=== PATIENT | male | born 1955 | race Caucasian/White ===

== ENCOUNTER 2016-10-09 15:10 | Inpatient (IN) | payer OTHER ==
[~2016-10-09] VITALS: Ht 193 cm; Wt 170.2 kg
[2016-10-09 16:22] LABS: HEMATOCRIT 35.8 % (38.0-50.0); MCH 28.9 PG (29.0-34.0); MCHC 33.8 G/DL (30.0-36.0); MCV 85.4 FL (86-99); PLATELET COUNT 256 K/uL (156-360); RBC DIS.WIDTH-CV 13.5 % (11.8-14.6); RBC DIS.WIDTH-SD 41.1 % (39-53); RED BLOOD COUNT 4.19 M/uL (4.00-5.50)
[2016-10-09 16:32] LABS: CHLORIDE 98 mEq/L (99-109); POTASSIUM 4.1 mEq/L (3.7-5.4); SODIUM 132 mEq/L (136-147)
[2016-10-09 16:35] LABS: GLUCOSE 256 mg/dL (70-99)
[2016-10-09 16:36] LABS: ANION GAP 13 MEQ/L (2-14)
[2016-10-09 16:37] LABS: TOTAL BILIRUBIN 0.5 mg/dL (0.0-1.0)
[2016-10-09 16:38] LABS: ALKALINE PHOSPHATASE 168 IU/L (3-129); GFR ESTIMATE (CALCULATED) > 59 mL/min/
[2016-10-09 16:39] LABS: UREA NITROGEN (BUN) 25 mg/dL (9-23)
[2016-10-09] MEDS ORDERED: LISINOPRIL20 MG PO (20:21)
[2016-10-09] MEDS ORDERED: NOVOLIN N100 UNITS/ SC (20:21)
[2016-10-09] MEDS ORDERED: SILVADENE20 GM TP (20:21)
[2016-10-09] MEDS ORDERED: BACTRIM,SEPT1 TABLET PO (20:21)
[2016-10-09] MEDS ORDERED: MELOXICAM7.5 MG PO (20:21)
[2016-10-09] MEDS ORDERED: METFORMIN HCL1000 MG PO (20:22)
[2016-10-09] MEDS ORDERED: LITE COAT ASPI325 M1 PO (20:22)
[2016-10-09] MEDS ORDERED: PERCOCET 10/1 TABLET PO (20:22)
[2016-10-09] MEDS ORDERED: LYRICA200 MG PO (20:22)
[2016-10-09] MEDS ORDERED: SOMA350 MG PO (20:22)
[2016-10-09] MEDS ORDERED: ATENOLOL50 MG PO (20:22)
[2016-10-09] MEDS ORDERED: LOVASTATIN20 MG PO (20:23)
[2016-10-09 21:10] LABS: ADD MIUA? YES; BILIRUBIN NEGATIVE; BLOOD SMALL; COLOR DK YELLOW ((YELLOW)); GLUCOSE (STRIP) NEGATIVE; KETONES 40; LEUKOCYTES NEGATIVE; NITRITE NEGATIVE; PROTEIN (STRIP) 100
[2016-10-09 22:20] LABS: BACTERIA 1+; CASTS PRESENT /LPF; CRYSTALS PRESENT; EPITHELIAL CELLS RARE; FINE GRANULAR CASTS 0-5 /LPF; MUCUS RARE; UCUL ADDED? NO; WHITE BLOOD CELLS 0-5 /HPF (0-5)
[2016-10-09 22:21] LABS: AMORPHOUS PHOSPHATE CRYSTALS 2+
[2016-10-10] MEDS ORDERED: LIDODERM 5% P1 PATCH TD (05:16)
[2016-10-10] MEDS ORDERED: DURAGESIC75 MCG TD (05:16)
[2016-10-10 05:44] VITALS: BP 135/81
[2016-10-10 06:44] LABS: EOSINOPHIL (%) 0.8 % (0-5); EOSINOPHIL COUNT 0.1 K/uL (0-0.3); HEMATOCRIT 32.3 % (38.0-50.0); IMMATURE GRANULOCYTE (%) 0.7 % (0.0-0.7); IMMATURE GRANULOCYTE COUNT 0.1 K/uL; LYMPHOCYTE COUNT 1.3 K/uL (1.0-2.8); MCH 29.1 PG (29.0-34.0); MCHC 33.4 G/DL (30.0-36.0); MCV 87.1 FL (86-99); MEAN PLAT.VOLUME 10.4 uM^3 (9.0-12.4); MONOCYTE (%) 8.2 % (3-12); MONOCYTE COUNT 1.5 K/uL (0-0.8); NEUTROPHIL (%) 82.7 % (45-76); NEUTROPHIL COUNT 14.5 K/uL (1.8-6.4); PLATELET COUNT 240 K/uL (156-360); RBC DIS.WIDTH-CV 13.9 % (11.8-14.6); RBC DIS.WIDTH-SD 44.5 % (39-53); RED BLOOD COUNT 3.71 M/uL (4.00-5.50); WHITE BLOOD COUNT 17.6 K/uL (4.1-10.2)
[2016-10-10 07:21] LABS: ANION GAP 11 MEQ/L (2-14); CHLORIDE 97 MEQ/L (99-109); GFR ESTIMATE (CALCULATED) > 59 mL/min/; GLUCOSE 318 mg/dL (70-99); POTASSIUM 4.1 MEQ/L (3.7-5.4); SAMPLE HEMOLYSIS CHECK 0; SAMPLE ICTERIC CHECK 0; SAMPLE LIPEMIA CHECK 0; SODIUM 129 MEQ/L (136-147); UREA NITROGEN (BUN) 20 mg/dL (9-23)
[2016-10-10 09:01] LABS: Estimated Average Glucose 220 mg/dL (70-123); HEMOGLOBIN A1c (GLYCOHEMOGLOB) 9.3 % HGB (Below 5.7)
[2016-10-10 11:04] VITALS: BP 130/75
[2016-10-10 15:23] VITALS: BP 148/79
[2016-10-10 17:47] LABS: POINT-OF-CARE USER ID 515036437
[2016-10-10 19:10] VITALS: BP 125/69
[2016-10-11] VITALS: BP 101/53
[2016-10-11 04:05] VITALS: BP 147/69
[2016-10-11 06:16] LABS: EOSINOPHIL (%) 0.1 % (0-5); HEMATOCRIT 29.7 % (38.0-50.0); IMMATURE GRANULOCYTE (%) 0.6 % (0.0-0.7); IMMATURE GRANULOCYTE COUNT 0.1 K/uL; LYMPHOCYTE COUNT 1.1 K/uL (1.0-2.8); MCH 28.5 PG (29.0-34.0); MCHC 32.7 G/DL (30.0-36.0); MCV 87.4 FL (86-99); MEAN PLAT.VOLUME 9.9 uM^3 (9.0-12.4); MONOCYTE (%) 6.3 % (3-12); MONOCYTE COUNT 0.9 K/uL (0-0.8); NEUTROPHIL (%) 84.9 % (45-76); NEUTROPHIL COUNT 12.2 K/uL (1.8-6.4); PLATELET COUNT 241 K/uL (156-360); RBC DIS.WIDTH-CV 14.1 % (11.8-14.6); WHITE BLOOD COUNT 14.3 K/uL (4.1-10.2)
[2016-10-11 07:47] VITALS: BP 131/72
[2016-10-11 08:19] LABS: ANION GAP 10 MEQ/L (2-14); CHLORIDE 102 MEQ/L (99-109); GFR ESTIMATE (CALCULATED) > 59 mL/min/; GLUCOSE 300 mg/dL (70-99); SAMPLE HEMOLYSIS CHECK 0; SAMPLE ICTERIC CHECK 0; SAMPLE LIPEMIA CHECK 0; SODIUM 133 MEQ/L (136-147); UREA NITROGEN (BUN) 20 mg/dL (9-23)
[2016-10-11 11:27] VITALS: BP 126/70
[2016-10-11 15:18] VITALS: BP 104/66
[2016-10-11 20:00] VITALS: BP 122/66
[2016-10-12] VITALS: BP 129/69
[2016-10-12 04:30] VITALS: BP 130/73
[2016-10-12 08:08] VITALS: BP 121/84
[2016-10-12 08:11] LABS: HEMATOCRIT 32.4 % (38.0-50.0); MCH 29.3 PG (29.0-34.0); MCHC 32.7 G/DL (30.0-36.0); MCV 89.5 FL (86-99); MEAN PLAT.VOLUME 10.5 uM^3 (9.0-12.4); PLATELET COUNT 298 K/uL (156-360); RBC DIS.WIDTH-CV 14.3 % (11.8-14.6); RBC DIS.WIDTH-SD 46.9 % (39-53); RED BLOOD COUNT 3.62 M/uL (4.00-5.50); WHITE BLOOD COUNT 10.4 K/uL (4.1-10.2)
[2016-10-12 08:21] LABS: ANION GAP 11 MEQ/L (2-14); CHLORIDE 104 MEQ/L (99-109); GFR ESTIMATE (CALCULATED) > 59 mL/min/; GLUCOSE 217 mg/dL (70-99); POTASSIUM 4.7 MEQ/L (3.7-5.4); SAMPLE HEMOLYSIS CHECK 0; SAMPLE ICTERIC CHECK 0; SAMPLE LIPEMIA CHECK 0; SODIUM 136 MEQ/L (136-147); UREA NITROGEN (BUN) 21 mg/dL (9-23)
[2016-10-12 08:37] LABS: BASOPHIL COUNT 0.1 K/uL (0-0.1); EOSINOPHIL (%) 4.3 % (0-5); EOSINOPHIL COUNT 0.5 K/uL (0-0.3); HEMATOLOGY COMMENT 1 SMEAR COMPATIBLE; IMMATURE GRANULOCYTE (%) 3.5 % (0.0-0.7); IMMATURE GRANULOCYTE COUNT 0.4 K/uL; LYMPHOCYTE COUNT 2.3 K/uL (1.0-2.8); MONOCYTE (%) 7.7 % (3-12); MONOCYTE COUNT 0.8 K/uL (0-0.8); NEUTROPHIL (%) 62.1 % (45-76); NEUTROPHIL COUNT 6.5 K/uL (1.8-6.4); USER ID CL
[2016-10-12 11:05] LABS: POINT-OF-CARE METER ID UU14174225
[2016-10-12 11:10] VITALS: BP 141/73
[2016-10-12 15:19] VITALS: BP 164/79
[2016-10-12 16:01] LABS: POINT-OF-CARE METER ID UU14174225
[2016-10-12 19:50] VITALS: BP 140/79
[2016-10-13 00:29] VITALS: BP 133/64; BP 139/71
[2016-10-13 03:57] VITALS: BP 141/76
[2016-10-13 07:09] LABS: HEMATOCRIT 35.2 % (38.0-50.0); MCH 28.9 PG (29.0-34.0); MCHC 32.1 G/DL (30.0-36.0); MEAN PLAT.VOLUME 9.8 uM^3 (9.0-12.4); PLATELET COUNT 365 K/uL (156-360); RBC DIS.WIDTH-CV 14.5 % (11.8-14.6); RBC DIS.WIDTH-SD 47.6 % (39-53); RED BLOOD COUNT 3.91 M/uL (4.00-5.50); WHITE BLOOD COUNT 8.9 K/uL (4.1-10.2)
[2016-10-13 07:34] LABS: ALKALINE PHOSPHATASE 90 IU/L (3-129); ANION GAP 9 MEQ/L (2-14); CHLORIDE 106 MEQ/L (99-109); GFR ESTIMATE (CALCULATED) > 59 mL/min/; GLUCOSE 199 mg/dL (70-99); MAGNESIUM 2.3 mg/dl (1.3-2.7); POTASSIUM 4.8 MEQ/L (3.7-5.4); SAMPLE HEMOLYSIS CHECK 0; SAMPLE ICTERIC CHECK 0; SAMPLE LIPEMIA CHECK 0; SODIUM 142 MEQ/L (136-147); TOTAL BILIRUBIN 0.3 MG/DL (0.0-1.0); UREA NITROGEN (BUN) 15 mg/dL (9-23)
[2016-10-13 07:54] VITALS: BP 177/79
[2016-10-13 08:01] LABS: DELETE MACHINE DIFF? YES
[2016-10-13 08:02] LABS: ABS NEUTROPHIL COUNT 5.98; ANISOCYTOSIS 1+; EOSINOPHIL ABS CT 0.54; HYPOCHROMASIA 1+; MICROCYTOSIS OCC; PLAT.SUFFICIENCY ADEQUATE; SPHEROCYTES OCC; USER ID TLW
[2016-10-13 16:06] VITALS: BP 165/86
[2016-10-14 00:12] VITALS: BP 157/83
[2016-10-14 08:10] VITALS: BP 178/85
[2016-10-14 09:35] LABS: HEMATOCRIT 33.4 % (38.0-50.0); MCH 29.2 PG (29.0-34.0); MCHC 32.3 G/DL (30.0-36.0); MCV 90.3 FL (86-99); MEAN PLAT.VOLUME 9.5 uM^3 (9.0-12.4); PLATELET COUNT 360 K/uL (156-360); RBC DIS.WIDTH-CV 14.4 % (11.8-14.6); RBC DIS.WIDTH-SD 47.1 % (39-53); WHITE BLOOD COUNT 10.2 K/uL (4.1-10.2)
[2016-10-14 10:03] LABS: ANION GAP 9 MEQ/L (2-14); CHLORIDE 102 MEQ/L (99-109); GFR ESTIMATE (CALCULATED) > 59 mL/min/; GLUCOSE 187 mg/dL (70-99); POTASSIUM 4.7 MEQ/L (3.7-5.4); SAMPLE HEMOLYSIS CHECK 0; SAMPLE ICTERIC CHECK 0; SAMPLE LIPEMIA CHECK 0; SODIUM 140 MEQ/L (136-147); UREA NITROGEN (BUN) 10 mg/dL (9-23)
[2016-10-14 15:06] LABS: Estimated Average Glucose 220 mg/dL (70-123); HEMOGLOBIN A1c (GLYCOHEMOGLOB) 9.3 % HGB (Below 5.7)
[2016-10-14 16:08] VITALS: BP 166/72
[2016-10-15 00:25] VITALS: BP 184/81
[2016-10-15 06:59] LABS: HEMATOCRIT 34.9 % (38.0-50.0); MCH 29.1 PG (29.0-34.0); MCHC 32.4 G/DL (30.0-36.0); MCV 89.9 FL (86-99); MEAN PLAT.VOLUME 9.4 uM^3 (9.0-12.4); PLATELET COUNT 315 K/uL (156-360); RBC DIS.WIDTH-CV 14.4 % (11.8-14.6); RED BLOOD COUNT 3.88 M/uL (4.00-5.50); WHITE BLOOD COUNT 8.8 K/uL (4.1-10.2)
[2016-10-15 07:30] VITALS: BP 149/71
[2016-10-15 07:34] LABS: ANION GAP 8 MEQ/L (2-14); CHLORIDE 100 MEQ/L (99-109); GFR ESTIMATE (CALCULATED) > 59 mL/min/; GLUCOSE 194 mg/dL (70-99); POTASSIUM 4.7 MEQ/L (3.7-5.4); SAMPLE HEMOLYSIS CHECK 0; SAMPLE ICTERIC CHECK 0; SAMPLE LIPEMIA CHECK 0; SODIUM 139 MEQ/L (136-147); UREA NITROGEN (BUN) 11 mg/dL (9-23)
[2016-10-15 07:52] LABS: POINT-OF-CARE METER ID UU14174225
[2016-10-15 08:28] VITALS: BP 149/71
[2016-10-15 11:09] LABS: POINT-OF-CARE METER ID UU14174225
[2016-10-15 16:12] VITALS: BP 168/86
[2016-10-15 16:43] LABS: POINT-OF-CARE METER ID UU14174225
[2016-10-15 22:20] LABS: POINT-OF-CARE METER ID UU14174225
[2016-10-16] VITALS: BP 161/79
[2016-10-16 08:32] VITALS: BP 150/90
[2016-10-16 15:12] VITALS: BP 132/66
[2016-10-17] VITALS: BP 137/63
[2016-10-17 07:38] VITALS: BP 132/76
[2016-10-17 08:36] LABS: POINT-OF-CARE METER ID UU14174225
[2016-10-17 16:30] VITALS: BP 147/68
[2016-10-18 00:11] VITALS: BP 132/76
[2016-10-18 07:01] VITALS: BP 130/60
[2016-10-18 07:58] LABS: POINT-OF-CARE METER ID UU14174225; POINT-OF-CARE USER ID 611181312
[2016-10-18 11:50] LABS: POINT-OF-CARE METER ID UU14174225; POINT-OF-CARE USER ID 611181312
[2016-10-18 15:58] LABS: POINT-OF-CARE METER ID UU14174225
[2016-10-18 15:59] VITALS: BP 164/76
[2016-10-18 23:58] VITALS: BP 134/71
[2016-10-19 07:39] VITALS: BP 137/76
[2016-10-19 09:10] LABS: POINT-OF-CARE METER ID UU14174225
[2016-10-19 15:24] VITALS: BP 154/66
[2016-10-20 00:13] VITALS: BP 160/71
[2016-10-20 07:52] VITALS: BP 153/83
[2016-10-20 08:26] LABS: HEMATOCRIT 34.9 % (38.0-50.0); MCH 29.4 PG (29.0-34.0); MCHC 32.7 G/DL (30.0-36.0); MCV 89.9 FL (86-99); MEAN PLAT.VOLUME 9.5 uM^3 (9.0-12.4); PLATELET COUNT 303 K/uL (156-360); RBC DIS.WIDTH-CV 14.4 % (11.8-14.6); RBC DIS.WIDTH-SD 46.7 % (39-53); RED BLOOD COUNT 3.88 M/uL (4.00-5.50); WHITE BLOOD COUNT 7.2 K/uL (4.1-10.2)
[2016-10-20 08:52] LABS: ANION GAP 7 MEQ/L (2-14); CHLORIDE 102 MEQ/L (99-109); POTASSIUM 4.4 MEQ/L (3.7-5.4); SAMPLE HEMOLYSIS CHECK 0; SAMPLE ICTERIC CHECK 0; SAMPLE LIPEMIA CHECK 0; SODIUM 138 MEQ/L (136-147)
[2016-10-20 09:00] LABS: GFR ESTIMATE (CALCULATED) > 59 mL/min/; GLUCOSE 122 mg/dL (70-99); UREA NITROGEN (BUN) 18 mg/dL (9-23)
[2016-10-20 15:05] VITALS: BP 130/71
[2016-10-20 23:40] VITALS: BP 130/60
[2016-10-21 07:57] VITALS: BP 132/72
[2016-10-21 15:48] VITALS: BP 139/67
[2016-10-21 16:22] LABS: POINT-OF-CARE METER ID UU14174225
[2016-10-21 23:59] VITALS: BP 170/72
[2016-10-22 07:55] VITALS: BP 129/74
[2016-10-22] MEDS ORDERED: HEPARIN SO5000 UNITS SC (13:45)
[2016-10-22] MEDS ORDERED: AMITRIPTYLINE H10 MG PO (13:50)
[2016-10-22] MEDS ORDERED: NOVOLIN N100 UNITS/ SC (13:51)
[2016-10-22] MEDS ORDERED: NYSTATIN15 GM TP (13:51)
[2016-10-22] MEDS ORDERED: THERAGRAN1 TABLET PO (13:51)
[2016-10-22] MEDS ORDERED: NOVOLOG PE100 UNITS/ SC (13:51)
[2016-10-22] MEDS ORDERED: OXYCODONE-APAP1 EACH PO (13:52)
[2016-10-22] MEDS ORDERED: KEFLEX500 MG PO (14:25)
[2016-10-22] MEDS ORDERED: MELOXICAM7.5 MG PO (15:51)
[2016-10-22 15:59] VITALS: BP 145/79
== END 2016-10-22 18:15 | DRG 256 ==
LOC: RME 15:10 → EME 15:10 → EDOF 20:10 → 5SOUTH 20:49 → EDOF 20:49 → 5SOUTH 10-10 05:15
PROVIDERS: Hospitalist; Internal Medicine; Physician Assistant; Surgery
DX: E11.52 Type 2 diabetes mellitus with diabetic peripheral angiopathy with gangrene (principal); E11.69 Type 2 diabetes mellitus with other specified complication; L03.115 Cellulitis of right lower limb; B95.61 Methicillin susceptible Staphylococcus aureus infection as the cause of diseases classified elsewhere; E66.01 Morbid (severe) obesity due to excess calories; Z68.42 Body mass index [BMI] 45.0-49.9, adult; L02.611 Cutaneous abscess of right foot; E87.1 Hypo-osmolality and hyponatremia; J02.8 Acute pharyngitis due to other specified organisms; I89.0 Lymphedema, not elsewhere classified; I10 Essential (primary) hypertension; E78.5 Hyperlipidemia, unspecified; E78.00 Pure hypercholesterolemia, unspecified; E11.65 Type 2 diabetes mellitus with hyperglycemia; E11.42 Type 2 diabetes mellitus with diabetic polyneuropathy; G89.4 Chronic pain syndrome; M54.5 Low back pain; M54.2 Cervicalgia; Z86.718 Personal history of other venous thrombosis and embolism; Z79.891 Long term (current) use of opiate analgesic; Z79.4 Long term (current) use of insulin
CPT/HCPCS: 73630; 80048; 80053; 80202; 81003; 82009; 82565; 82948; 83036; 83605; 83735; 84100; 85025; 85027; 87040; 87070; 87075; 87076; 87077; 87147; 87186; 87205; 88305; 88311; 93005; 93926; 93971; 97530 GP; 99281; 99285; J0330; J0690; J1100; J1170; J1644; J1815; J2405; J2543; J2710; J3010; J3370; J7030; J7040; J7050

== ENCOUNTER 2016-12-08 11:05 | Inpatient (IN) | payer OTHER ==
[~2016-12-08] VITALS: Ht 193 cm; Wt 180.3 kg
[~2016-12-08 11:05] MED LIST: AMITRIPTYLINE H10 MG PO; ATENOLOL50 MG PO; BACTRIM,SEPT1 TABLET PO; DURAGESIC75 MCG TD; HEPARIN SO5000 UNITS SC; KEFLEX500 MG PO; LIDODERM 5% P1 PATCH TD; LISINOPRIL20 MG PO; LITE COAT ASPI325 M1 PO; LOVASTATIN20 MG PO; LYRICA200 MG PO; MELOXICAM7.5 MG PO; METFORMIN HCL1000 MG PO; NOVOLIN N100 UNITS/ SC; NOVOLOG PE100 UNITS/ SC; NYSTATIN15 GM TP; OXYCODONE-APAP1 EACH PO; PERCOCET 10/1 TABLET PO; SILVADENE20 GM TP; SOMA350 MG PO; THERAGRAN1 TABLET PO
[2016-12-08 12:05] LABS: EOSINOPHIL (%) 0.5 % (0-5); EOSINOPHIL COUNT 0.1 K/uL (0-0.3); HEMATOCRIT 33.9 % (38.0-50.0); IMMATURE GRANULOCYTE (%) 0.3 % (0.0-0.7); IMMATURE GRANULOCYTE COUNT 0.5 K/uL; MCHC 33.3 G/DL (30.0-36.0); MCV 86.9 FL (86-99); MEAN PLAT.VOLUME 9.7 uM^3 (9.0-12.4); MONOCYTE (%) 6.5 % (3-12); MONOCYTE COUNT 1.1 K/uL (0-0.8); NEUTROPHIL (%) 86.9 % (45-76); NEUTROPHIL COUNT 15.2 K/uL (1.8-6.4); PLATELET COUNT 251 K/uL (156-360); RBC DIS.WIDTH-CV 13.3 % (11.8-14.6); RBC DIS.WIDTH-SD 41.2 % (39-53); WHITE BLOOD COUNT 17.5 K/uL (4.1-10.2)
[2016-12-08 12:30] LABS: CHLORIDE 102 mEq/L (99-109); POTASSIUM 5.4 mEq/L (3.7-5.4); SODIUM 136 mEq/L (136-147)
[2016-12-08 12:31] LABS: GLUCOSE 220 mg/dL (70-99)
[2016-12-08 12:33] LABS: ANION GAP 8 MEQ/L (2-14)
[2016-12-08 12:35] LABS: GFR ESTIMATE (CALCULATED) 55 mL/min/
[2016-12-08 12:36] LABS: UREA NITROGEN (BUN) 42 mg/dL (9-23)
[2016-12-08] MEDS ORDERED: PERCOCET 10/1 TABLET PO (13:03)
[2016-12-08] MEDS ORDERED: HEMMOREX-HC25 MG PR (14:11)
[2016-12-08] MEDS ORDERED: LANTUS 10100 UNITS/ SC (14:13)
[2016-12-08] MEDS ORDERED: LASIX40 MG PO (14:14)
[2016-12-08] MEDS ORDERED: THERAGRAN1 TABLET PO (14:16)
[2016-12-08] MEDS ORDERED: PROTONIX40 MG PO (14:20)
[2016-12-08] MEDS ORDERED: VITAMIN C500 M1 PO (14:21)
[2016-12-08] MEDS ORDERED: NOVOLOG PE100 UNITS/ SC (14:38)
[2016-12-08] MEDS ORDERED: GLUCO BURST37.5 GM PO (14:42)
[2016-12-08] MEDS ORDERED: OXAYDO5 MG PO (14:44)
[2016-12-08] MEDS ORDERED: B-121000 MC2 PO (14:48)
[2016-12-08] MEDS ORDERED: AMITRIPTYLINE H25 MG PO (16:33)
[2016-12-08] MEDS ORDERED: HEPARIN SO5000 UNITS SC (16:36)
[2016-12-08 19:09] VITALS: BP 144/65
[2016-12-08 22:49] VITALS: BP 136/62
[2016-12-09 07:08] LABS: ANION GAP 7 MEQ/L (2-14); CHLORIDE 101 MEQ/L (99-109); GFR ESTIMATE (CALCULATED) > 59 mL/min/; GLUCOSE 155 mg/dL (70-99); SAMPLE HEMOLYSIS CHECK 0; SAMPLE ICTERIC CHECK 0; SAMPLE LIPEMIA CHECK 0; SODIUM 137 MEQ/L (136-147); UREA NITROGEN (BUN) 33 mg/dL (9-23)
[2016-12-09 07:14] LABS: EOSINOPHIL (%) 0.5 % (0-5); HEMATOCRIT 32.1 % (38.0-50.0); IMMATURE GRANULOCYTE (%) 0.3 % (0.0-0.7); MCH 27.4 PG (29.0-34.0); MCHC 30.5 G/DL (30.0-36.0); MCV 89.7 FL (86-99); MEAN PLAT.VOLUME 9.6 uM^3 (9.0-12.4); MONOCYTE (%) 10.3 % (3-12); MONOCYTE COUNT 0.9 K/uL (0-0.8); NEUTROPHIL (%) 77.1 % (45-76); NEUTROPHIL COUNT 6.7 K/uL (1.8-6.4); PLATELET COUNT 199 K/uL (156-360); RBC DIS.WIDTH-CV 13.9 % (11.8-14.6); RBC DIS.WIDTH-SD 45.6 % (39-53); RED BLOOD COUNT 3.58 M/uL (4.00-5.50)
[2016-12-09 07:15] VITALS: BP 115/56
[2016-12-09 07:20] LABS: WHITE BLOOD COUNT 8.7 K/uL (4.1-10.2)
[2016-12-09 07:29] LABS: POTASSIUM 4.1 MEQ/L (3.7-5.4)
[2016-12-09 11:40] VITALS: BP 111/57
[2016-12-09 11:42] LABS: POINT-OF-CARE METER ID UU13113725
[2016-12-09 15:50] VITALS: BP 112/55
[2016-12-09 23:34] VITALS: BP 147/63
[2016-12-10 07:58] VITALS: BP 102/56
[2016-12-10 09:03] LABS: GFR ESTIMATE (CALCULATED) > 59 mL/min/; UREA NITROGEN (BUN) 24 mg/dL (9-23)
[2016-12-10 09:14] LABS: VANCOMYCIN, TROUGH 19.7 MCG/ML (10-20)
[2016-12-10 15:21] VITALS: BP 115/55
[2016-12-10 16:24] LABS: POINT-OF-CARE METER ID UU13113725
[2016-12-11] VITALS: BP 111/55
[2016-12-11 06:54] VITALS: BP 134/67
[2016-12-11] MEDS ORDERED: UNASYN3 GM IM (11:31)
[2016-12-11] MEDS ORDERED: FENTANYL1 EAC2 TD (11:31)
[2016-12-11] MEDS ORDERED: OXYCODONE HCL5 MG PO (11:31)
[2016-12-11] MEDS ORDERED: DAKINS SOLUTIO473 ML TP (11:31)
[2016-12-11] MEDS ORDERED: OXYCODONE-APAP1 EACH PO (11:31)
[2016-12-11 15:21] VITALS: BP 117/54
[2016-12-11 23:25] VITALS: BP 132/69
[2016-12-12 07:12] VITALS: BP 147/63
[2016-12-12 15:15] VITALS: BP 131/64
[2016-12-12 19:30] VITALS: BP 132/78
[2016-12-12 20:17] LABS: POINT-OF-CARE USER ID AHSUCEG
[2016-12-12 23:42] VITALS: BP 121/62
[2016-12-12 23:43] VITALS: BP 121/62
[2016-12-13 07:53] VITALS: BP 128/69
[2016-12-13] MEDS ORDERED: OXYCODONE HCL5 MG PO (10:41)
[2016-12-13] MEDS ORDERED: UNASYN3 GM IV (11:21)
== END 2016-12-13 12:30 | DRG 638 ==
LOC: EME 11:05 → 5EAST 14:22 → EDOF 14:22 → 5EAST 18:06
PROVIDERS: Emergency Medicine; Hospitalist; Internal Medicine; Internal Medicine Infectious Disease
PROC: 02HV33Z Insertion of Infusion Device into Superior Vena Cava, Percutaneous Approach (ICD-10-PCS; principal; 2016-12-12)
DX: E11.69 Type 2 diabetes mellitus with other specified complication (principal); L03.115 Cellulitis of right lower limb; N17.9 Acute kidney failure, unspecified; M86.8X7 Other osteomyelitis, ankle and foot; E11.42 Type 2 diabetes mellitus with diabetic polyneuropathy; E11.65 Type 2 diabetes mellitus with hyperglycemia; Z68.42 Body mass index [BMI] 45.0-49.9, adult; E66.01 Morbid (severe) obesity due to excess calories; I10 Essential (primary) hypertension; Z79.84 Long term (current) use of oral hypoglycemic drugs; Z79.4 Long term (current) use of insulin; B95.4 Other streptococcus as the cause of diseases classified elsewhere; Z86.718 Personal history of other venous thrombosis and embolism; G89.29 Other chronic pain
CPT/HCPCS: 73720; 76937; 80048; 80202; 82565; 82948; 83605; 84520; 85025; 85651; 86140; 87040; 87070; 87075; 87077; 87186; 87205; 97530 GO; 99281; 99285; C1769; J0295; J0692; J1650; J1815; J2543; J3370; J7030; J7040; J7050

== ENCOUNTER 2017-05-12 13:04 | Inpatient (IN) | payer OTHER ==
[~2017-05-12] VITALS: Ht 193 cm; Wt 176.4 kg
[~2017-05-12 13:04] MED LIST changes: +AMITRIPTYLINE H25 MG PO; +B-121000 MC2 PO; +DAKINS SOLUTIO473 ML TP; +FENTANYL1 EAC2 TD; +GLUCO BURST37.5 GM PO; +HEMMOREX-HC25 MG PR; +LANTUS 10100 UNITS/ SC; +LASIX40 MG PO; +OXAYDO5 MG PO; +OXYCODONE HCL5 MG PO; +PROTONIX40 MG PO; +UNASYN3 GM IM; +UNASYN3 GM IV; +VITAMIN C500 M1 PO
[2017-05-12 13:32] LABS: HEMATOCRIT 34.2 % (38.0-50.0); MCH 28.1 PG (29.0-34.0); MCHC 32.7 G/DL (30.0-36.0); MCV 85.9 FL (86-99); MEAN PLAT.VOLUME 8.8 uM^3 (9.0-12.4); PLATELET COUNT 187 K/uL (156-360); RBC DIS.WIDTH-CV 14.3 % (11.8-14.6); RBC DIS.WIDTH-SD 44.4 % (39-53); RED BLOOD COUNT 3.98 M/uL (4.00-5.50); WHITE BLOOD COUNT 14.9 K/uL (4.1-10.2)
[2017-05-12 13:40] LABS: CHLORIDE 104 mEq/L (99-109); SODIUM 137 mEq/L (136-147)
[2017-05-12 13:41] LABS: GLUCOSE 192 mg/dL (70-99)
[2017-05-12 13:43] LABS: ANION GAP 9 MEQ/L (2-14)
[2017-05-12 13:45] LABS: GFR ESTIMATE (CALCULATED) 44 mL/min/
[2017-05-12 13:46] LABS: UREA NITROGEN (BUN) 26 mg/dL (9-23)
[2017-05-12 15:38] LABS: BASE EXCESS -0.8 mEq/L (-3 to +3); BICARBONATE 23.2 mEq/L (22-26); CARBOXY HGB 1.5 % (0-5); COMMENTS - BLOOD GASES A+C+; DEVICE NC; METHEMOGLOBIN 1.4 % (0-1.5); O2 FLOW 2 L/MIN; PCO2 35 mm Hg (35-45); PO2 104 mm Hg (80-100); SITE RR; TOTAL RESP RATE 15 resp/min; pH 7.43 (7.35-7.45)
[2017-05-12 16:49] LABS: ADD MIUA? NO; BILIRUBIN NEGATIVE; BLOOD NEGATIVE; COLOR YELLOW ((YELLOW)); GLUCOSE (STRIP) NEGATIVE; KETONES NEGATIVE; LEUKOCYTES NEGATIVE; NITRITE NEGATIVE; PROTEIN (STRIP) NEGATIVE; SPECIFIC GRAVITY 1.019 (1.000-1.030); UCUL ADDED? NO; UROBILINOGEN 0.2 MG/DL (0.2-1.0)
[2017-05-12] MEDS ORDERED: ROXICODONE5 MG PO (17:19)
[2017-05-12] MEDS ORDERED: OXYCONTIN15 MG PO (17:20)
[2017-05-12] MEDS ORDERED: PERCOCET 10/1 TABLET PO (17:22)
[2017-05-12] MEDS ORDERED: CIALIS20 MG PO (17:26)
[2017-05-12] MEDS ORDERED: MELOXICAM7.5 MG PO (17:27)
[2017-05-12] MEDS ORDERED: DOXYCYCLINE HYC50 MG PO (17:27)
[2017-05-12 17:57] LABS: APPEARANCE CLEAR/COLORLESS
[2017-05-12 18:03] LABS: RED CELL AREA COUNTED 18; RED CELL COUNT 4 /MM^3 (0-1); RED CELL DILUTION 1; WBC AREA COUNTED 18; WBC DILUTION 1; WHITE CELL COUNT 1 /MM^3 (0-5); WHITE CELL RAW COUNT 1
[2017-05-12 18:04] LABS: CSF EOSINOPHILS 0 % (0-25); MONONUCLEAR WBC'S 0 % (50-90); POLYNUCLEAR WBC'S 0 % (0-3)
[2017-05-12 20:13] VITALS: BP 115/50
[2017-05-12 20:23] LABS: POINT-OF-CARE METER ID UU14174225
[2017-05-12 22:30] VITALS: BP 134/66
[2017-05-13 03:48] VITALS: BP 136/63
[2017-05-13 05:32] LABS: HEMATOCRIT 28.9 % (38.0-50.0); MCH 28.7 PG (29.0-34.0); MCHC 33.2 G/DL (30.0-36.0); MCV 86.5 FL (86-99); PLATELET COUNT 160 K/uL (156-360); RBC DIS.WIDTH-CV 14.8 % (11.8-14.6); RBC DIS.WIDTH-SD 46.9 % (39-53); RED BLOOD COUNT 3.34 M/uL (4.00-5.50); WHITE BLOOD COUNT 12.5 K/uL (4.1-10.2)
[2017-05-13 05:57] LABS: ANION GAP 9 MEQ/L (2-14); CHLORIDE 109 MEQ/L (99-109); GFR ESTIMATE (CALCULATED) 44 mL/min/; GLUCOSE 176 mg/dL (70-99); POTASSIUM 4.9 MEQ/L (3.7-5.4); SAMPLE HEMOLYSIS CHECK 0; SAMPLE ICTERIC CHECK 0; SAMPLE LIPEMIA CHECK 0; SODIUM 139 MEQ/L (136-147); UREA NITROGEN (BUN) 25 mg/dL (9-23)
[2017-05-13 07:45] VITALS: BP 133/63
[2017-05-13 09:00] LABS: POINT-OF-CARE METER ID UU13113717
[2017-05-13 11:41] VITALS: BP 154/67
[2017-05-13 15:56] VITALS: BP 144/64
[2017-05-13 20:00] VITALS: BP 133/65
[2017-05-13 23:46] VITALS: BP 132/63
[2017-05-14 04:06] LABS: POINT-OF-CARE METER ID UU14188625
[2017-05-14 06:35] VITALS: BP 119/83
[2017-05-14 12:34] LABS: POINT-OF-CARE METER ID UU13113717
[2017-05-14 12:35] VITALS: BP 122/64
[2017-05-14 16:11] VITALS: BP 116/58
[2017-05-14 17:10] LABS: POINT-OF-CARE METER ID UU14188625
[2017-05-14 19:44] VITALS: BP 118/59
[2017-05-14 23:42] VITALS: BP 118/58
[2017-05-15 03:45] VITALS: BP 152/64
[2017-05-15 08:43] VITALS: BP 121/58
[2017-05-15 08:45] LABS: POINT-OF-CARE METER ID UU13113717
[2017-05-15 12:17] VITALS: BP 121/59
[2017-05-15 16:26] VITALS: BP 128/60
[2017-05-15 16:39] LABS: POINT-OF-CARE METER ID UU14188625
[2017-05-15 22:07] LABS: POINT-OF-CARE METER ID UU14188625
[2017-05-15 23:46] VITALS: BP 128/62
[2017-05-16 05:14] LABS: POINT-OF-CARE METER ID UU14174225
[2017-05-16 07:47] LABS: POINT-OF-CARE METER ID UU14174225
[2017-05-16 08:09] VITALS: BP 172/74
[2017-05-16 09:21] LABS: HEMATOCRIT 27.1 % (38.0-50.0); MCH 27.8 PG (29.0-34.0); MCHC 32.1 G/DL (30.0-36.0); MCV 86.6 FL (86-99); MEAN PLAT.VOLUME 10.7 uM^3 (9.0-12.4); PLATELET COUNT 142 K/uL (156-360); RBC DIS.WIDTH-SD 47.6 % (39-53); RED BLOOD COUNT 3.13 M/uL (4.00-5.50); WHITE BLOOD COUNT 9.4 K/uL (4.1-10.2)
[2017-05-16 09:44] LABS: ANION GAP 10 MEQ/L (2-14); CHLORIDE 108 MEQ/L (99-109); GFR ESTIMATE (CALCULATED) 39 mL/min/; GLUCOSE 180 mg/dL (70-99); POTASSIUM 4.8 MEQ/L (3.7-5.4); SAMPLE HEMOLYSIS CHECK 0; SAMPLE ICTERIC CHECK 0; SAMPLE LIPEMIA CHECK 0; SODIUM 138 MEQ/L (136-147); UREA NITROGEN (BUN) 27 mg/dL (9-23)
[2017-05-16 12:03] LABS: POINT-OF-CARE METER ID UU14188625
[2017-05-16 15:36] VITALS: BP 131/65
[2017-05-16 16:32] LABS: POINT-OF-CARE METER ID UU14188625
[2017-05-16 22:51] LABS: POINT-OF-CARE METER ID UU14188625
[2017-05-16 23:47] VITALS: BP 138/74
[2017-05-17 07:56] LABS: POINT-OF-CARE METER ID UU14174225
[2017-05-17 08:13] VITALS: BP 171/78
[2017-05-17 12:11] LABS: POINT-OF-CARE METER ID UU14174225
[2017-05-17 15:42] VITALS: BP 170/60
[2017-05-17 16:50] LABS: POINT-OF-CARE METER ID UU14188625
[2017-05-17 21:34] LABS: POINT-OF-CARE METER ID UU14174225
[2017-05-17 23:08] VITALS: BP 176/73
[2017-05-18 07:54] VITALS: BP 138/75
[2017-05-18 09:30] LABS: ANION GAP 11 MEQ/L (2-14); CHLORIDE 105 MEQ/L (99-109); GFR ESTIMATE (CALCULATED) 51 mL/min/; GLUCOSE 150 mg/dL (70-99); POTASSIUM 4.7 MEQ/L (3.7-5.4); SAMPLE HEMOLYSIS CHECK 0; SAMPLE ICTERIC CHECK 0; SAMPLE LIPEMIA CHECK 0; SODIUM 139 MEQ/L (136-147); UREA NITROGEN (BUN) 24 mg/dL (9-23)
[2017-05-18 11:58] LABS: POINT-OF-CARE METER ID UU14188625
[2017-05-18 23:19] VITALS: BP 142/67
[2017-05-19 07:36] VITALS: BP 159/72
[2017-05-19 08:49] LABS: POINT-OF-CARE METER ID UU14188625
[2017-05-19] MEDS ORDERED: KEFLEX500 MG PO (09:26)
[2017-05-19 12:18] LABS: POINT-OF-CARE METER ID UU14174225
[2017-05-19] MEDS ORDERED: DUONEB 2.5-0.5 M3 ML AEROSOL (12:31)
[2017-05-19] MEDS ORDERED: ACIDOPHILUS LA1 EACH PO (12:31)
[2017-05-19 15:53] VITALS: BP 147/72
[2017-05-19 17:13] LABS: POINT-OF-CARE METER ID UU14174225
[2017-05-19 21:08] LABS: POINT-OF-CARE METER ID UU14188625
[2017-05-19 23:27] VITALS: BP 140/78
[2017-05-20 07:39] VITALS: BP 156/70
[2017-05-20 08:31] LABS: POINT-OF-CARE METER ID UU13113717
[2017-05-20 11:43] LABS: POINT-OF-CARE METER ID UU14174225
[2017-05-20 16:04] VITALS: BP 158/72
[2017-05-20 17:09] LABS: POINT-OF-CARE METER ID UU14174225
[2017-05-20 21:24] LABS: POINT-OF-CARE METER ID UU14174225
[2017-05-21] VITALS: BP 145/67
[2017-05-21 07:47] VITALS: BP 157/71
[2017-05-21 11:25] LABS: POINT-OF-CARE METER ID UU14174225
[2017-05-21] MEDS ORDERED: LYRICA50 MG PO (12:00)
[2017-05-21] MEDS ORDERED: PERCOCET 10/1 TABLET PO (12:00)
[2017-05-21] MEDS ORDERED: OXYCONTIN15 MG PO (12:00)
[2017-05-21] MEDS ORDERED: FENTANYL1 EAC2 TD (12:00)
[2017-05-21] MEDS ORDERED: SOMA350 MG PO (12:00)
[2017-05-21 16:03] VITALS: BP 152/71
== END 2017-05-21 16:55 | DRG 871 ==
LOC: EME 13:04 → 5SOUTH 16:48 → EDOF 16:48 → ENRESERV 17:12 → 5SOUTH 19:42
PROVIDERS: Emergency Medicine; Internal Medicine
PROC: 009U3ZX Drainage of Spinal Canal, Percutaneous Approach, Diagnostic (ICD-10-PCS; principal; 2017-05-12)
DX: A41.02 Sepsis due to Methicillin resistant Staphylococcus aureus (principal); G93.40 Encephalopathy, unspecified; L03.116 Cellulitis of left lower limb; E87.2 Acidosis; N17.9 Acute kidney failure, unspecified; A81.00 Creutzfeldt-Jakob disease, unspecified; F05 Delirium due to known physiological condition; Z68.42 Body mass index [BMI] 45.0-49.9, adult; E11.65 Type 2 diabetes mellitus with hyperglycemia; E11.621 Type 2 diabetes mellitus with foot ulcer; G89.4 Chronic pain syndrome; M47.812 Spondylosis without myelopathy or radiculopathy, cervical region; M17.9 Osteoarthritis of knee, unspecified; L97.519 Non-pressure chronic ulcer of other part of right foot with unspecified severity; T81.89XA Other complications of procedures, not elsewhere classified, initial encounter; R09.02 Hypoxemia; E66.01 Morbid (severe) obesity due to excess calories; E78.5 Hyperlipidemia, unspecified; G47.33 Obstructive sleep apnea (adult) (pediatric); E11.42 Type 2 diabetes mellitus with diabetic polyneuropathy; I11.0 Hypertensive heart disease with heart failure; M47.816 Spondylosis without myelopathy or radiculopathy, lumbar region; I50.9 Heart failure, unspecified; I87.8 Other specified disorders of veins; J45.909 Unspecified asthma, uncomplicated; Z89.421 Acquired absence of other right toe(s); Z79.84 Long term (current) use of oral hypoglycemic drugs; Z79.4 Long term (current) use of insulin
CPT/HCPCS: 36600; 71010; 73560; 73630; 77002; 77003; 80048; 80202; 81003; 82803; 82945; 82948; 83605; 84157; 85027; 87040; 87070; 87205; 89051; 94660; 94760; 94799; 97530 GO; 97530 GP; 99202; 99281; 99285; A6212; A6260; J0690; J0696; J1644; J1650; J1815; J1940; J2405; J2543; J3370; J7030; J7040; J7050